=== PATIENT | female | born 1980 | race Caucasian/White ===

== ENCOUNTER 2017-08-06 01:19 | Emergency (ER) | payer OTHER ==
--- NOTE | 2017-08-06 01:23 | PDOC ---
History of Present Illness - General Chief Complaint: Pain, Acute Stated Complaint: RIGHT FLANK PAIN Time Seen by Provider: 08/06/17 01:21 - History of Present Illness Initial Comments: This 36-year-old woman without significant past medical history presents with 1 day history of progressive right flank pain. Patient had mild pain early in the day which became much more severe over the last 2 hours. She feels radiation of the pain into her groin. Pain is sharp and intermittently more severe. She has no nausea or vomiting. No fever/chills. She denies any other history of this type of pain. There has been no dysuria/urinary frequency/ urgency or hematuria. Patient is currently menstruating Past History - Past Medical History Allergies/Adverse Reactions: Allergies Allergy/AdvReac Type Severity Reaction Status Date / Time No Known Allergies Allergy Verified 08/06/17 01:22 Home Medications: Ambulatory Orders Oxycodone HCl/Acetaminophen [Percocet 5-325 mg Tablet] 1 tab PO Q6H PRN #12 tablet MDD 3 tabs 08/06/17 Anemia: No Asthma: No - Immunization History Immunization Up to Date: Yes - Suicide/Smoking/Psychosocial Hx Smoking History: Never smoked Hx Alcohol Use: No Drug/Substance Use Hx: No Substance Use Type: None *Physical Exam - Physical Exam Comments: GENERAL: Adult female, in moderate distress secondary to right flank pain HEAD: Normal with no signs of trauma. EYES: PERRLA, EOMI, sclera anicteric, conjunctiva clear. ENT: Ears normal, nares patent, oropharynx clear without exudates. Dry mucous membranes. NECK: Normal range of motion, supple without lymphadenopathy, JVD, or masses. LUNGS: Breath sounds equal, clear to auscultation bilaterally. No wheezes, and no crackles. HEART:Regular rate and rhythm, normal S1 and S2 without murmur, rub or gallop. ABDOMEN:.normal bowel sounds No guarding,tenderness or rebound.No masses No distention. EXTREMITIES: Normal range of motion, no edema. No clubbing or cyanosis. No erythema, or tenderness. NEUROLOGICAL: Cranial nerves II through XII grossly intact. Normal speech. No focal neurological deficits. MUSCULOSKELETAL: Back non-tender to palpation, moderate right CVA tenderness/ right flank tenderness SKIN: Warm, Dry, normal turgor, no rashes or lesions noted. ED Treatment Course - LABORATORY CBC & Chemistry Diagram: 10/09/17 02:00 08/06/17 02:00 Progress Note - Progress Note Progress Note: Patient given a liter of normal saline and 30 mg Toradol IV Medical Decision Making - Medical Decision Making Patient had marked decrease of her pain after IV saline hydration and 30 mg of Toradol IV. Patient continued to be asymptomatic after a liter of normal saline and 30 mg of Toradol IV. Patient will be discharged with instructions to drink plenty of water and to use [id number] ibuprofen/naproxen/acetaminophen as needed for mild-to- moderate pain. Patient will be given prescription for Percocet 5/325 to be used as needed for severe pain. She should follow-up either with her general medical doctor or with urologist (Dr. Henderson group) within the next few days. She should return to the emergency room if she has severe, unrelenting pain or develops persistent vomiting/fever. *DC/Admit/Observation/Transfer Diagnosis at time of Disposition: Renal colic on right side - Discharge Dispostion Disposition: HOME Condition at time of disposition: Stable - Prescriptions Prescriptions: Oxycodone HCl/Acetaminophen [Percocet 5-325 mg Tablet] 1 tab PO Q6H PRN #12 tablet MDD 3 tabs PRN Reason: Severe Pain - Referrals Referrals: Nelia Randle MD [Primary Care Provider] - Cj Henderson MD [Staff Physician] - - Patient Instructions Printed Discharge Instructions: Kidney Stones -- Adult Additional Instructions: Drink plenty of water Tylenol/Motrin as needed for [id number] pain Percocet 5/325 up to 3 times a day as needed for severe pain Return to ER if you have persistent severe pain or develop vomiting/fever Follow-up with Dr. Henderson (urologist) within the next 5 days
[2017-08-06 01:30] VITALS: TEMP 98.5; BMI 30.1
[2017-08-06] MEDS ORDERED: KETOROLAC TROMETHAMINE 30 MG/1 ML VIAL IVPUSH ONE (01:46)
[2017-08-06] MEDS ORDERED: SODIUM CHLORIDE 1,000 ML IV STA (01:46)
[2017-08-06 01:49] LABS: URINE APPEARANCE SLCLOUDY; URINE BILIRUBIN NEGATIVE (NEGATIVE); URINE BLOOD 3+ (NEGATIVE); URINE GLUCOSE (UA) NEGATIVE (NEGATIVE); URINE KETONE NEGATIVE (NEGATIVE); URINE NITRITE NEGATIVE (NEGATIVE); URINE UROBILINOGEN NEGATIVE mg/dL (0.2-1.0)
[2017-08-06 01:50] LABS: URINE COLOR PINK; URINE PROTEIN 1+ (NEGATIVE)
[2017-08-06] MEDS ORDERED: KETOROLAC TROMETHAMINE 60 MG/2 ML VIAL ONE (01:53)
[2017-08-06 02:35] LABS: BASOPHIL 0.6 % (0-2.0); EOSINOPHIL 1.6 % (0-4.5); MCH 27.9 pg (25.7-33.7); MCHC 33.4 g/dl (32.0-36.0); MEAN CELL VOLUME 83.6 fl (80-96); MEAN PLT VOLUME 9.9 fl (7.5-11.1); NEUTROPHILS 69.5 % (42.8-82.8); PLATELET COUNT 278 K/MM3 (134-434); WHITE BLOOD COUNT 13.2 K/mm3 (4.0-10.0)
[2017-08-06 02:47] VITALS: BP 147/90; PULSE 69
[2017-08-06 03:03] LABS: ALBUMIN 3.8 g/dl (3.4-5.0); ALK PHOS 85 U/L (45-117); ANION GAP 11 (8-16); BILIRUBIN,TOTAL 0.6 mg/dL (0.2-1.0); CALCIUM 8.8 mg/dL (8.5-10.1); CO2 25 mmol/L (21-32); CREATININE 0.8 mg/dL (0.55-1.02); GLUCOSE,RANDOM 92 mg/dL (74-106); SGOT/AST 17 U/L (15-37); SGPT/ALT 25 U/L (12-78); TOT PROT 7.7 g/dl (6.4-8.2)
[2017-08-06 11:09] LABS: URINE LEUK ESTERASE Negative (NEGATIVE)
== END 2017-08-06 04:40 | disposition home or self-care (01) ==
LOC: FER 01:19
PROC: 3E0333Z Introduction of Anti-inflammatory into Peripheral Vein, Percutaneous Approach (ICD-10-PCS; principal; 2017-08-06)
PROC: 3E0337Z Introduction of Electrolytic and Water Balance Substance into Peripheral Vein, Percutaneous Approach (ICD-10-PCS; 2017-08-06)
DX: N23 Unspecified renal colic (principal)
CPT/HCPCS: 36415; 80053; 81003; 81015; 84703; 85025; 99282-25

== ENCOUNTER 2019-04-19 00:41 | Inpatient (IN) | payer OTHER ==
[2019-04-19] MEDS ORDERED: NITROGLYCERIN SUBLINGUAL 1/150 0.4 MG TAB SL ONE (01:24)
[2019-04-19] MEDS ORDERED: VALSARTAN 40 MG TABLET (FP) PO ONE (01:24)
--- NOTE | 2019-04-19 01:24 | PDOC ---
History of Present Illness - General Chief Complaint: Blood Pressure Problem Stated Complaint: HEADACHE/HIGH BP Time Seen by Provider: 04/19/19 00:55 History Source: Patient Exam Limitations: No Limitations - History of Present Illness Initial Comments: 04/19/19 01:25 38 y/o F no significant PMHx presents with Headache. Patient has had headache on and off for the past few months. She has tried conservative tx including NSAIDs with minimal relief. Eariler on Sunday morning, She visited an ENT who found her BP to be elevated and suggested she visit the ED. Patient says her BP at [facility] ED was 200s/100. Additionally she had Labs, EKG and CXR all normal and that she was discharged on 12.5mg HCTZ. Approx 5 mins after taking the first dose at 7pm on 04/18, patient vomited and her headache began to return. She then tried advil and vomitied for a 2nd time prompting her to visit the ED. She says both episodes of vomiting were NBNB. She describes the headache as a pressure over the forehead region, currently 5/10 but 10/10 at worst, radiates to her eyes and her posterior cranium. She additionally mentions having headaches in the past while on OCPs, and sessation of OCP use helped resolve the headaches. FDLMP: 04/01/19 Denies any recent trauma, travel, sick contacts or recent medication changes. Denies any Fevers, chills, chest pain, SOB, Nausea, vomiting, Diarrhea, constipation, dysuria, visual changes, photophobia. PCP: Dr. Randle Meds: Verenice Huerta PMHx: Denies PSHx: Denies Allergies: NKDA Social: Denies tobacco, EtOH or drug use FHx: Father with HTN and DM, Mother with Thyroid Disease Past History - Past Medical History Allergies/Adverse Reactions: Allergies Allergy/AdvReac Type Severity Reaction Status Date / Time No Known Allergies Allergy Verified 04/19/19 00:50 Home Medications: Ambulatory Orders Oxycodone HCl/Acetaminophen [Percocet 5-325 mg Tablet] 1 tab PO Q6H PRN #12 tablet MDD 3 tabs 08/06/17 Valsartan [Diovan] 40 mg PO DAILY #30 tablet 04/19/19 Anemia: No Asthma: No - Immunization History Immunization Up to Date: Yes - Suicide/Smoking/Psychosocial Hx Smoking History: Never smoked Have you smoked in the past 12 months: No Information on smoking cessation initiated: No Hx Alcohol Use: No Drug/Substance Use Hx: No Substance Use Type: None Review of Systems - Review of Systems Constitutional: No: Chills, Fever HEENTM: No: Blurred Vision, Double Vision Respiratory: No: Cough, Shortness of Breath Cardiac (ROS): No: Chest Pain, Palpitations ABD/GI: Yes: Vomiting. No: Constipated, Diarrhea, Nausea : No: Dysuria, Hematuria Neurological: No: Numbness, Tingling *Physical Exam - Vital Signs Last Vital Signs Temp Pulse Resp BP Pulse Ox 98.3 F 89 20 195/136 H 96 04/19/19 00:51 04/19/19 00:51 04/19/19 00:51 04/19/19 00:51 04/19/19 00:51 - Physical Exam General Appearance: Yes: Nourished, Appropriately Dressed HEENT: positive: EOMI, EYAL. negative: Pharyngeal Erythema, Tonsillar Exudate Neck: positive: Supple Respiratory/Chest: positive: Lungs Clear, Normal Breath Sounds. negative: Accessory Muscle Use, Crackles, Rhonchi, Wheezing Cardiovascular: positive: Regular Rhythm, Regular Rate, S1, S2. negative: Edema , JVD, Murmur Gastrointestinal/Abdominal: positive: Normal Bowel Sounds, Soft. 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 negative: Sensory Deficit ED Treatment Course - LABORATORY CBC & Chemistry Diagram: 04/19/19 01:27 04/19/19 01:27 Medical Decision Making - Medical Decision Making 04/19/19 01:36 38 y/o F no significant PMHx presents with Headache in the setting of HTN. Headaches started shortly after starting Jumet FE. BP 195/136 otherwise VSS, No associated visual symptoms, No FND, No Chest pain or SOB. Will Check EKG, Cardiac profile, CBC, CMP, Mag Phos. If UPreg Negative, will order CT Head Noncon. Give SL Nitro 0.4mg, Diovan 40mg. Tylenol for headache Ongoing assessment. 04/19/19 02:50 Lab work noted above. UPreg Negative, Head CT NonCon ordered. BP improving. 04/19/19 04:[address]: No acute pathology. BP Remains elevated. Patient has vomited x2 since arrival in ED. Concern for Hypertensive Urgency. Microblog sent for Admission. 04/19/19 04:43 Will try IV Hydralizine 10mg 04/19/19 05:58 BP now 165/115 Sign out given to MIRIAM Diaz *DC/Admit/Observation/Transfer Diagnosis at time of Disposition: Uncontrolled hypertension - Discharge Dispostion Disposition: HOME Decision to Admit order: Yes - Prescriptions - Referrals - Patient Instructions - Post Discharge Activity
[2019-04-19] MEDS ORDERED: ACETAMINOPHEN 1000 MG/100 ML VIAL (NON FORMULARY) IVPB ONE (01:31)
[2019-04-19] MEDS ORDERED: ACETAMINOPHEN INJECTION 100 ML IVPB ONE (01:37)
[2019-04-19 01:56] LABS: BASO % 0.3 % (0-2.0); EOS % 0.2 % (0-4.5); HEMATOCRIT 42.4 % (32.4-45.2); HEMOGLOBIN 14.1 GM/dL (10.7-15.3); LYMPH % 13.7 % (8-40); MCH 26.2 pg (25.7-33.7); MCHC 33.2 g/dl (32.0-36.0); MEAN CELL VOLUME 78.9 fl (80-96); MEAN PLT VOLUME 9.6 fl (7.5-11.1); MONO % 4.5 % (3.8-10.2); NEUT % 81.3 % (42.8-82.8); PLATELET COUNT 322 K/MM3 (134-434); RBC 5.37 M/mm3 (3.60-5.2); RDW 15.8 % (11.6-15.6); WHITE BLOOD COUNT 15.3 K/mm3 (4.0-10.0)
[2019-04-19 02:27] LABS: ALBUMIN 3.7 g/dl (3.4-5.0); BILIRUBIN,TOTAL 0.6 mg/dL (0.2-1); BLOOD UREA NITROGEN 9.9 mg/dL (7-18); CALCIUM 9.4 mg/dL (8.5-10.1); CREATININE 0.9 mg/dL (0.55-1.3); MAGNESIUM 2.2 mg/dL (1.8-2.4); PHOSPHOROUS 3.7 mg/dL (2.5-4.9); POTASSIUM 3.8 mmol/L (3.5-5.1); TOT PROT 8.1 g/dl (6.4-8.2)
--- NOTE | 2019-04-19 02:58 | PDOC ---
Documentation entered by Alan Ramirez SCRIBE, acting as scribe for Ginny Emery MD. Ginny Emery MD: This documentation has been prepared by the James iraheta Elijah, SCRIBE, under my direction and personally reviewed by me in its entirety. I confirm that the documentation accurately reflects all work, treatment, procedures, and medical decision making performed by me. Attending Attestation - Resident Resident Name: Lena Diaz - ED Attending Attestation I have performed the following: I have examined & evaluated the patient, The case was reviewed & discussed with the resident, I agree w/resident's findings & plan - HPI HPI: 04/19/19 01:53 The patient is a 38 year old female, with no significant PMH of who presents to the emergency department with intermittent headaches over the last few months and an abnormally High Blood Pressure. The patient reports trying to take medications to relieve the headache but it only had minimal effects. The patient then went to an ENT where it was discovered that her BP was elevated ( around 200/100). The patient then received other labs but they came back normal. The patient was discharged and given 12.5mg of HCTZ which made her vomit around 5 minutes later. The patient then tried to take an advil to relieve her symptoms and she again vomited, prompting her visit to the ED. The patient describes the pain as waxing and waning, currently at 5/10 and 10/10 at its worst and radiating from her eyes to the back of her head. The patient denies chest pain, shortness of breath, and dizziness. Denies fever, chills, nausea, diarrhea and constipation. Denies dysuria, frequency, urgency and hematuria. Allergies: NKA PCP :Dr. Randle - Physicial Exam PE: 04/19/19 01:53 GENERAL: Awake, alert, and fully oriented, in no acute distress HEAD: No signs of trauma EYES: PERRLA, EOMI, sclera anicteric, conjunctiva clear ENT: Auricles normal inspection, hearing grossly normal, nares patent, oropharynx clear without exudates. Moist mucosa NECK: Normal ROM, supple, no lymphadenopathy, JVD, or masses LUNGS: Breath sounds equal, clear to auscultation bilaterally. No wheezes, and no crackles HEART: Regular rate and rhythm, normal S1 and S2, no murmurs, rubs or gallops ABDOMEN: Soft, nontender, normoactive bowel sounds. No guarding, no rebound. No masses EXTREMITIES: Normal range of motion, no edema. No clubbing or cyanosis. No cords, erythema, or tenderness NEUROLOGICAL: Cranial nerves II through XII grossly intact. Normal speech, normal gait SKIN: Warm, Dry, normal turgor, no rashes or lesions noted. - Medical Decision Making 04/19/19 04:01 Patient Name: QAMAR JOHN THIS IS A PRELIMINARY REPORT FROM [facility] DATE OF SERVICE: 2019-04-19 03:11:33 IMAGES: 150 EXAM: HEAD CT WITHOUT CONTRAST HISTORY: Headache COMPARISON: None. FINDINGS: The ventricular system is midline and nondilated. The sulcal pattern is normal for the patient's age. There is no bleed, mass, extra-axial fluid collection or mass effect. No skull fracture or skull lesion is identified. The visualized paranasal sinuses and mastoid air cells are clear. Multiple large subcutaneous calcified sebaceous cysts are noted. IMPRESSION: No acute pathology 04/19/19 06:19 Pt's blood pressure is difficult to control, as she keeps vomiting up her meds. SHe has notmal labs and CT scan. I will be treated with IV dose of meds and she will be admitted for hypertensive urgency, vomiting, Heart Score/ECG Review - ECG Intrepretation Rhythm: Regular Rhythm - Sherrill Sherrill: Normal - P and CT Delta Wave(s) Present: No WPW: No - ST and T Early Repolarization: No Non Specific ST-T Wave changes: No - ECG Impressions Normal ECG: Yes Non-specific ST Elevation: No Ischemic Changes: No Comment:: 04/19/19 04:17 LV[facility]
[2019-04-19] MEDS ORDERED: hydrALAZINE HCL 20 MG/ML VIAL IVPUSH ONE (04:42)
[2019-04-19] MEDS ORDERED: hydrALAZINE HCL 20 MG/ML VIAL ONE ×2 (05:07→11:34)
--- NOTE | 2019-04-19 06:04 | HP ---
Admitting History and Physical - Primary Care Physician PCP: Nelia Randle - Admission Chief Complaint: Headache, High Blood pressure History of Present Illness: 38 year old female with Pmhx of headaches; arrived to ED with complain of headaches and Hypertensive urgency. As per patient headaches have been on/off for a few weeks, headache constant in pressure, radiates around her eye, current pain scale 5/10. She has had headaches in the past which resolve after taking Advil, per patient past headaches have been triggered by her oral contraceptives. Patient on Sunday morning went to ENT for her allergies and at the office was noted with high BP went to [facility] form there, at the hospital per patient did EKG, CXR, and labs all which came back normal and was given HCTZ and sent home. At home around 7pm on 04/18, patient took her medication and vomited and her headache began to return. Vomited two times at home which brought her to ED. While at the ED given Divon 40 mg PO x1 without any changes in BP, however patient voimted x2 again, now with IV push hydralizine 10 mg with slight improvement BP of 165/115 History Source: Patient Limitations to Obtaining History: No Limitations - Past Medical History Cardiovascular: Yes: HTN (diet contorlled now) ...LMP: 02/25/16 Heme/Onc: Yes: Other (chronic mild leukocytosis ~12 000) - Smoking History Smoking history: Never smoked Have you smoked in the past 12 months: No - Alcohol/Substance Use Hx Alcohol Use: Yes (occasional ) History of Substance Use: reports: None - Social History Usual Living Arrangement: Yes: With Significant Other ADL: Independent History of Recent Travel: No Home Medications - Allergies Allergies/Adverse Reactions: Allergies Allergy/AdvReac Type Severity Reaction Status Date / Time No Known Allergies Allergy Verified 04/19/19 00:50 - Home Medications Home Medications: Ambulatory Orders Oxycodone HCl/Acetaminophen [Percocet 5-325 mg Tablet] 1 tab PO Q6H PRN #12 tablet MDD 3 tabs 08/06/17 Valsartan [Diovan] 40 mg PO DAILY #30 tablet 04/19/19 Family Disease History - Family Disease History Family Disease History: Diabetes: Father ( of lung ca, COPD), CA: Father, Brother ( of leukemia), Respiratory: Father, Mother (COPD) Review of Systems - Review of Systems Eyes: reports: Other (Eye pressure due to headach) Physical Examination Vital Signs: Vital Signs Temperature 98.2 F 04/19/19 04:08 Pulse Rate 86 04/19/19 04:08 Respiratory Rate 16 04/19/19 04:08 Blood Pressure 165/115 H 04/19/19 05:35 O2 Sat by Pulse Oximetry (%) 98 04/19/19 04:08 Labs: CBC, BMP 04/19/19 01:27 04/19/19 01:27 Problem List - Problems (1) Hypertensive urgency Assessment/Plan: 38 year old female present with Hypertension urgency and Nausea/ vomiting Head CT: No acute pathology. Given SL Nitro 0.4mg, Diovan 40mg x1 without any changes in BP - started on IV Hydralizine 10 mg q 6 hour - Continue with Tylenol PRN - follow up repeat cbc, cmp Code(s): I16.0 - HYPERTENSIVE URGENCY (2) Nausea & vomiting Assessment/Plan: Monitor for further vomiting - if needed will give zofran PRN Code(s): R11.2 - NAUSEA WITH VOMITING, UNSPECIFIED Assessment/Plan 38 year old female present with Hypertension urgency and Nausea/ vomiting Head CT: No acute pathology. Given SL Nitro 0.4mg, Diovan 40mg x1 without any changes in BP - started on IV Hydralizine 10 mg q 6 hour - Continue with Tylenol PRN - follow up repeat cbc, cmp - will get renal US - follow up ECHO - Cardiology follow up Visit type - Emergency Visit Emergency Visit: Yes ED Registration Date: 04/19/19 Care time: The patient presented to the Emergency Department on the above date and was hospitalized for further evaluation of their emergent condition. - New Patient This patient is new to me today: Yes Date on this admission: 04/19/19 - Critical Care Critical Care patient: No
[2019-04-19] MEDS ORDERED: hydrALAZINE HCL 20 MG/ML VIAL IVPUSH PRN (06:27)
[2019-04-19] MEDS ORDERED: ACETAMINOPHEN 325 MG TABLET (FP) ONE ×2 (07:55→08:23)
--- NOTE | 2019-04-19 08:07 | CON.CARD ---
Consult Consult Specialty:: Cardiology Referred by:: Dr. Randle Reason for Consultation:: Hypertensive Urgency - History of Present Illness Chief Complaint: Headache History of Present Illness: 38F with no sig PMH, recently started on OCPs, presents to ER with recently diagnosed HTN started on HCTZ complaining of headaches and nausea. No CP, SOB, palps, syncope or other neuro sx. BP in ER moderate to severely elevated, received oral dose of Valsartan. Presently alert, no complaints. Head CT negative for acute pathology. - History Source History Provided By: Patient - Past Medical History Cardio/Vascular: Yes: HTN (diet contorlled now) Pulmonary: No: Asthma, Bronchitis, Cancer, COPD, O2 Dependent, Pneumonia, Previously Intubated, Pulmonary Embolus, Pulmonary Fibrosis, Sleep Apnea, Other Gastrointestinal: No: Ascites, Cancer, Constipation, Crohn's Disease, Diverticulitis, Diverticulosis, Esophageal Varices, Gastritis, GERD, GI Bleed, Hemorrhoids, Hiatal Hernia, Inflamatory Bowel Disease, Irritable Bowel Disease, Pancreatitis, Peptic Ulcer Disease, Ulcerative Colitis, Other Hepatobiliary: No: Cirrhosis, Cholelithiasis, Cholecystitis, Choledocholithiasis , Hepatitis A, Hepatitis B, Hepatitis C, Other Renal/: No: Renal Failure, Renal Inusuff, BPH, Cancer, Hematuria, Hemodialysis , Neurogenic Bladder, Renal Calculi, UTI, Other Reproductive: No: Ectopic , Endometriosis, Fibroids, PID, Polycystic Ovary Syndrome, Postmenopausal, Other ...LMP: 02/25/16 Infectious Disease: No: AIDS, C-Diff, Herpes Zoster, HIV, MRSA, STD's, Tuberculosis, VREF, Other Psych: No: Addictions, Anxiety, Bipolar, Depression, Panic, Psychosis, Schizophrenia, Other Musculoskeletal: No: Bursitis, Chronic low back pain, Hemiparesis, Hemiplegia, Osteoarthritis, Paraplegia, Other Rheumatology: No: Fibromyalgia, Gout, Lupus, Rheumatoid Arthritis, Sarcoidosis, Vasculitis, Other ENT: No: Allergic Rhinitis, Sinusitis, Other Endocrine: No: Kyler's Disease, Prabhjot's Disease, Diabetes Insipidus, Diabetes Mellitus, Hyperparathyroidism, Hyperthyroidism, Hypothyroidism, Osteopenia, SIADH, Other Dermatology: No: Basal Cell, Cellulitis, Eczema, Melanoma, Psoriasis, Squamous Cell, Other - Alcohol/Substance Use Hx Alcohol Use: Yes (occasional ) History of Substance Use: reports: None - Smoking History Smoking history: Never smoked Have you smoked in the past 12 months: No - Social History ADL: Independent History of Recent Travel: No Home Medications - Allergies Allergies/Adverse Reactions: Allergies Allergy/AdvReac Type Severity Reaction Status Date / Time No Known Allergies Allergy Verified 04/19/19 00:50 - Home Medications Home Medications: Ambulatory Orders Oxycodone HCl/Acetaminophen [Percocet 5-325 mg Tablet] 1 tab PO Q6H PRN #12 tablet MDD 3 tabs 08/06/17 Valsartan [Diovan] 40 mg PO DAILY #30 tablet 04/19/19 Family Disease History - Family Disease History Family Disease History: Diabetes: Father ( of lung ca, COPD), CA: Father, Brother ( of leukemia), Respiratory: Father, Mother (COPD) Review of Systems - Review of Systems Constitutional: reports: No Symptoms Eyes: reports: No Symptoms HENT: reports: No Symptoms Neck: reports: No Symptoms Cardiovascular: reports: No Symptoms Respiratory: reports: No Symptoms Gastrointestinal: reports: No Symptoms Genitourinary: reports: No Symptoms Breasts: reports: No Symptoms Reported Musculoskeletal: reports: No Symptoms Integumentary: reports: No Symptoms Neurological: reports: Headache Endocrine: reports: No Symptoms Hematology/Lymphatic: reports: No Symptoms Psychiatric: reports: No Symptoms - Risk Factors Known Risk Factors: Yes: Hypertension Vital Signs: Vital Signs Temperature 97.4 F L 04/19/19 06:17 Pulse Rate 97 H 04/19/19 06:17 Respiratory Rate 16 04/19/19 04:08 Blood Pressure 169/107 H 04/19/19 06:21 O2 Sat by Pulse Oximetry (%) 98 04/19/19 06:17 Constitutional: Yes: No Distress, Calm Eyes: Yes: Conjunctiva Clear, EOM Intact HENT: Yes: Atraumatic, Normocephalic Neck: Yes: Supple, Trachea Midline Respiratory: Yes: CTA Bilaterally Gastrointestinal: Yes: Soft Renal/: Yes: Other (no bruits) Cardiovascular: Yes: Regular Rate and Rhythm JVD: No Carotid Bruit: No PMI: Non-Displaced Heart Sounds: Yes: S1, S2 Edema: No Peripheral Pulses WNL: Yes Neurological: Yes: Alert, Oriented - Other Data Labs, Other Data: CBC, BMP 04/19/19 01:27 04/19/19 01:27 Troponin, BNP 04/19/19 01:27 Troponin I < 0.02 Troponin, BNP 04/19/19 01:27 Troponin I < 0.02 NSR [facility] Imaging - Results Cat Scan: Report Reviewed Assessment/Plan IMP: 1. Hypertensive urgency Possibly triggered by OCPs; secondary causes to be excluded. REC: 1. Start Amlodipine 5mg daily. 2. Check TSH 3. D/C OCPs 4. Renal artery duplex. Will follow.
[2019-04-19] MEDS ORDERED: ONDANSETRON 4 MG/2 ML VIAL ONE (08:23)
[2019-04-19] MEDS ORDERED: ACETAMINOPHEN 325 MG TABLET (FP) PO PRN (08:31)
[2019-04-19] MEDS ORDERED: ONDANSETRON 4 MG/2 ML VIAL IVPUSH PRN (08:32)
[2019-04-19] MEDS ORDERED: amLODIPine BESYLATE 5 MG TABLET (FP) PO SCH (10:00)
[2019-04-19] MEDS ORDERED: amLODIPine BESYLATE 10 MG TABLET (FP) PO SCH (10:00)
--- NOTE | 2019-04-19 10:35 | EKG ---
Test Reason : Blood Pressure : / mmHG Vent. Rate : 089 BPM Atrial Rate : 089 BPM P-R Int : 134 ms QRS Dur : 098 ms QT Int : 396 ms P-R-T Axes : 027 016 015 degrees QTc Int : 481 ms NORMAL SINUS RHYTHM MINIMAL VOLTAGE CRITERIA FOR LVH, MAY BE NORMAL VARIANT PROLONGED QT ABNORMAL ECG NO PREVIOUS ECGS AVAILABLE Confirmed by JIMENEZ SHANNON MD ([id number]) on 04/19/2019 10:35:15 AM Referred By: Confirmed By:JIMENEZ SHANNON MD
[2019-04-19] MEDS ORDERED: amLODIPine BESYLATE 5 MG TABLET (FP) PO ONE (14:30)
--- NOTE | 2019-04-19 14:42 | PN ---
Progress Note (short form) - Note Progress Note: she is admitted for headache and high bp no she also vomited twice no fever or chills no distress vs 180/115 heent nad neck supple lungs clear abd soft not tender bs normal ext no edema Laboratory Results - last 24 hr 04/19/19 04/19/19 04/19/19 01:27 01:27 01:27 WBC 15.3 H RBC 5.37 H Hgb 14.1 Hct 42.4 MCV 78.9 L MCH 26.2 MCHC 33.2 RDW 15.8 H D Plt Count 322 MPV 9.6 Absolute Neuts (auto) 12.4 H Neutrophils % 81.3 Lymphocytes % 13.7 D Monocytes % 4.5 Eosinophils % 0.2 D Basophils % 0.3 Nucleated RBC % 0 D-Dimer Sodium 137 Potassium 3.8 Chloride 103 Carbon Dioxide 26 Anion Gap 8 BUN 9.9 Creatinine 0.9 Est GFR (CKD-EPI)AfAm 94.01 Est GFR (CKD-EPI)NonAf 81.11 Random Glucose 120 H Calcium 9.4 Phosphorus 3.7 Magnesium 2.2 Total Bilirubin 0.6 AST 19 ALT 23 Alkaline Phosphatase 113 Creatine Kinase 81 Troponin I < 0.02 Total Protein 8.1 Albumin 3.7 Urine HCG, Qual 04/19/19 04/19/19 01:30 02:23 WBC RBC Hgb Hct MCV MCH MCHC RDW Plt Count MPV Absolute Neuts (auto) Neutrophils % Lymphocytes % Monocytes % Eosinophils % Basophils % Nucleated RBC % D-Dimer 431 Sodium Potassium Chloride Carbon Dioxide Anion Gap BUN Creatinine Est GFR (CKD-EPI)AfAm Est GFR (CKD-EPI)NonAf Random Glucose Calcium Phosphorus Magnesium Total Bilirubin AST ALT Alkaline Phosphatase Creatine Kinase Troponin I Total Protein Albumin Urine HCG, Qual Negative Ap headache her brain ct head is normal tylenol prn Htn add amlodipine cardiac consult
[2019-04-19] MEDS ORDERED: amLODIPine BESYLATE 5 MG TABLET (FP) ONE (15:04)
[2019-04-19] MEDS ORDERED: hydrALAZINE HCL 50 MG TABLET (FP) PO ONE (23:30)
[2019-04-19] MEDS ORDERED: LABETALOL HCL 100 MG TABLET (FP) PO ONE (23:30)
[2019-04-19 23:44] VITALS: BMI 29.2
[2019-04-20 09:23] LABS: BASO % 0.5 % (0-2.0); EOS % 0.7 % (0-4.5); HEMATOCRIT 40.9 % (32.4-45.2); HEMOGLOBIN 13.6 GM/dL (10.7-15.3); LYMPH % 20.8 % (8-40); MCH 26.3 pg (25.7-33.7); MCHC 33.2 g/dl (32.0-36.0); MEAN PLT VOLUME 10.1 fl (7.5-11.1); MONO % 7.3 % (3.8-10.2); NEUT % 70.7 % (42.8-82.8); PLATELET COUNT 362 K/MM3 (134-434); RBC 5.17 M/mm3 (3.60-5.2); WHITE BLOOD COUNT 14.8 K/mm3 (4.0-10.0)
[2019-04-20 09:54] LABS: ALBUMIN 3.6 g/dl (3.4-5.0); ALK PHOS 103 U/L (45-117); ANION GAP 10 MMOL/L (8-16); BILIRUBIN,TOTAL 0.9 mg/dL (0.2-1); BLOOD UREA NITROGEN 12.5 mg/dL (7-18); CALCIUM 9.3 mg/dL (8.5-10.1); CHLORIDE 103 mmol/L (98-107); CO2 26 mmol/L (21-32); CREATININE 1.1 mg/dL (0.55-1.3); GLUCOSE,RANDOM 93 mg/dL (74-106); POTASSIUM 3.7 mmol/L (3.5-5.1); SGOT/AST 21 U/L (15-37); SGPT/ALT 30 U/L (13-61); SODIUM 138 mmol/L (136-145); TOT PROT 7.8 g/dl (6.4-8.2)
[2019-04-20] MEDS: LABETALOL HCL 100 MG TABLET (FP) PO SCH ×2 (09:56→22:02)
[2019-04-20] MEDS: hydrALAZINE HCL 50 MG TABLET (FP) PO SCH ×2 (09:56→22:02)
--- NOTE | 2019-04-20 11:42 | PN ---
Progress Note, Physician Chief Complaint: seen and examine Denies CP, SOB Head CT negative Renal sono did not eval for RUBEN History of Present Illness: BP meds were adjusted this AM by PCP: now on Labetalol and Hydralazine - Current Medication List Current Medications: Active Medications Acetaminophen (Tylenol -) 650 mg PO Q6H PRN PRN Reason: PAIN Last Admin: 04/19/19 08:35 Dose: 650 mg Hydralazine HCl (Apresoline -) 50 mg PO BID [facility] Last Admin: 04/20/19 09:56 Dose: 50 mg Labetalol HCl (Normodyne -) 100 mg PO BID [facility] Last Admin: 04/20/19 09:56 Dose: 100 mg Ondansetron HCl (Zofran Injection) 4 mg IVPUSH Q6H PRN PRN Reason: NAUSEA AND/OR VOMITING Last Admin: 04/19/19 08:35 Dose: 4 mg - Objective Vital Signs: Vital Signs Temperature 98.0 F 04/20/19 09:14 Pulse Rate 78 04/20/19 09:14 Respiratory Rate 18 04/20/19 09:14 Blood Pressure 127/80 04/20/19 09:14 O2 Sat by Pulse Oximetry (%) 99 04/19/19 16:50 Constitutional: Yes: No Distress Cardiovascular: Yes: Regular Rate and Rhythm Respiratory: Yes: CTA Bilaterally Gastrointestinal: Yes: Soft Edema: No Neurological: Yes: Alert, Oriented Labs: CBC, BMP 04/20/19 07:47 04/20/19 07:47 Laboratory Tests 04/19/19 04/19/19 04/19/19 01:27 01:27 01:27 WBC 15.3 H Hgb 14.1 Plt Count 322 D-Dimer Sodium 137 Potassium 3.8 Creatinine 0.9 Magnesium 2.2 Creatine Kinase 81 Troponin I < 0.02 Albumin 3.7 04/19/19 04/20/19 04/20/19 01:30 07:47 07:47 WBC 14.8 H Hgb 13.6 Plt Count 362 D-Dimer 431 Sodium 138 Potassium 3.7 Creatinine 1.1 Magnesium Creatine Kinase 72 Troponin I < 0.02 Albumin Assessment/Plan IMP: 1. Hypertensive urgency, now improved. Renal fx stable 2. Leukocytosis Possibly triggered by OCPs; secondary causes to be excluded. REC: 1. Continue Labetalol. May not need Hydralazine half-way. Intolerant of HCTZ. 2. Check TSH, echo planned. 3. D/C OCPs 4. Renal artery duplex as outpatient 5. Continued clinical monitoring of BP trend. Will need close outpatient f/u moving forward.
--- NOTE | 2019-04-20 17:49 | PN ---
Progress Note (short form) - Note Progress Note: pt is doing better , no ASCENCIO, vitals , Vital Signs - 24 hr 04/19/19 04/20/19 04/20/19 23:00 06:39 09:00 Temperature 98.5 F Pulse Rate 91 H 89 Respiratory 18 18 18 Rate Blood Pressure 124/73 121/68 O2 Sat by Pulse 99 Oximetry (%) 04/20/19 04/20/19 09:14 14:04 Temperature 98.0 F 98.4 F Pulse Rate 78 80 Respiratory 18 18 Rate Blood Pressure 127/80 118/79 O2 Sat by Pulse Oximetry (%) neck supple , no jvd cvs s1/s2/0 chest ctab abd benign e xt no c/c/e neuro non focal, CBC, BMP 04/20/19 07:47 04/20/19 07:47 meds, Current Medications Generic Name Dose Route Start Last Admin Trade Name Freq PRN Reason Stop Dose Admin Acetaminophen 650 mg 04/19/19 08:31 04/19/19 08:35 Tylenol - PO 650 mg Q6H PRN Administration PAIN Hydralazine HCl 50 mg 04/20/19 10:00 04/20/19 09:56 Apresoline - PO 50 mg BID OMER Administration Labetalol HCl 100 mg 04/20/19 10:00 04/20/19 09:56 Normodyne - PO 100 mg BID [facility] Administration Ondansetron HCl 4 mg 04/19/19 08:32 04/19/19 08:35 Zofran Injection IVPUSH 4 mg Q6H PRN Administration NAUSEA AND/OR VOMITING A/P IMP: 1. Hypertensive urgency, now improved. Renal fx stable 2. Leukocytosis Possibly triggered by OCPs; secondary causes to be excluded. plan, 1. Continue Labetalol. . 2. Check TSH, echo planned. 3. D/C OCPs 4. Renal artery duplex as outpatient 5. Continued clinical monitoring of BP trend. Will need close outpatient f/u moving forward. needs workup for the secondary HTN as an outpt , leukocytosis, afebrile , get ua and C&S , and repeat
[2019-04-20 22:54] LABS: EPITHELIAL CELLS 17.6 /hpf
--- NOTE | 2019-04-21 07:00 | PN ---
Progress Note (short form) - Note Progress Note: Vital Signs Period Temp Pulse Resp BP Sys/Bright Pulse Ox Last 24 Hr 98.0 F-98.5 F 71-88 18-20 118-145/79-88 99-99 S1S2 RRR lungs cta abd soft NT +BS no edema HTN -echo -stop hydralazine -start norvasc UTI -bactrim -f/up cultures chronic low leukocytosis -NTD, has regular f/up with heme
[2019-04-21 08:15] LABS: BASO % 0.7 % (0-2.0); EOS % 2.5 % (0-4.5); HEMATOCRIT 40.6 % (32.4-45.2); HEMOGLOBIN 13.5 GM/dL (10.7-15.3); LYMPH % 23.2 % (8-40); MCH 26.4 pg (25.7-33.7); MCHC 33.1 g/dl (32.0-36.0); MEAN CELL VOLUME 79.7 fl (80-96); MEAN PLT VOLUME 9.2 fl (7.5-11.1); MONO % 8.3 % (3.8-10.2); NEUT % 65.3 % (42.8-82.8); PLATELET COUNT 325 K/MM3 (134-434); RDW 16.1 % (11.6-15.6); WHITE BLOOD COUNT 11.6 K/mm3 (4.0-10.0)
[2019-04-21 08:48] LABS: ALBUMIN 3.5 g/dl (3.4-5.0); BILIRUBIN,TOTAL 0.9 mg/dL (0.2-1); BLOOD UREA NITROGEN 12.9 mg/dL (7-18); CALCIUM 9.2 mg/dL (8.5-10.1); POTASSIUM 3.5 mmol/L (3.5-5.1); TOT PROT 7.6 g/dl (6.4-8.2)
[2019-04-21] MEDS ORDERED: amLODIPine BESYLATE 10 MG TABLET (FP) PO SCH (10:00)
[2019-04-21] MEDS: LABETALOL HCL 100 MG TABLET (FP) PO SCH (10:12)
[2019-04-21 13:55] VITALS: BP 139/88; PULSE 80
--- NOTE | 2019-04-21 14:05 | ECHO ---
Name: QAMAR JOHN Exam:Adult Echocardiogram Study Date: 04/21/2019 12:13 PM Age: 38 yrs Reason For Study: hypertension urgency new onset Height: 63 in Weight: 170 lb BSA: 1.8 m2 MMode/2D Measurements & Calculations IVSd: 1.0 cm Ao root diam: 3.3 cm LVIDd: 4.1 cm LA dimension: 2.9 cm LVIDs: 2.7 cm ACS: 1.8 cm LVPWd: 0.93 cm IVSs: 1.2 cm LVPWs: 1.1 cm EDV(Teich): 74.6 ml ESV(Teich): 26.4 ml Doppler Measurements & Calculations MV E max ronny: 92.3 cm/sec Ao V2 max: 166.8 cm/sec MV A max ronny: 62.7 cm/sec Ao max P.1 mmHg MV E/A: 1.5 Ao V2 mean: 117.8 cm/sec Ao mean P.4 mmHg Ao V2 VTI: 34.0 cm MR max ronny: 550.0 cm/sec Med Peak E' Ronny: 6.3 cm/sec MR max P.0 mmHg Med E/e': 14.8 Lat Peak E' Ronny: 9.2 cm/sec Lat E/e': 10.0 Procedure A complete two-dimensional transthoracic echocardiogram was performed (2D, M-mode, Doppler and color flow Doppler). Left Ventricle The left ventricle is normal in size. Left ventricular systolic function is normal. Ejection Fraction = 60- 65%. No regional wall motion abnormalities noted. Right Ventricle The right ventricle is normal size. The right ventricular systolic function is normal. Atria The left atrial size is normal. Right atrial size is normal. Mitral Valve There is mild mitral annular calcification. There is mild mitral regurgitation. Tricuspid Valve The tricuspid valve is normal in structure and function. There is trace tricuspid regurgitation. Aortic Valve The aortic valve is normal in structure and function. Mild aortic regurgitation. Pulmonic Valve The pulmonic valve is not well visualized. Great Vessels The aortic root is normal size. Pericardium/Pleura There is no pericardial effusion. Interpretation Summary The left ventricle is normal in size. Left ventricular systolic function is normal. No regional wall motion abnormalities noted. Ejection Fraction = 60-65%. The right ventricular systolic function is normal. The left atrial size is normal. Right atrial size is normal. There is mild mitral annular calcification. There is mild mitral regurgitation. There is trace tricuspid regurgitation. Mild aortic regurgitation. There is no pericardial effusion. Previous study is not available for comparison Isidoro Nieves MD 04/21/2019 02:05 PM
[2019-04-21 14:34] VITALS: TEMP 98.3
--- NOTE | 2019-04-21 15:47 | PN ---
Progress Note (short form) - Note Progress Note: s: no chest pain, palps, dizziness, dyspnea. feels better. Current Medications Acetaminophen (Tylenol -) 650 mg PO Q6H PRN PRN Reason: PAIN Last Admin: 04/19/19 08:35 Dose: 650 mg Amlodipine Besylate (Norvasc -) 10 mg PO DAILY [facility] Last Admin: 04/21/19 10:12 Dose: 10 mg Labetalol HCl (Normodyne -) 100 mg PO BID [facility] Last Admin: 04/21/19 10:12 Dose: 100 mg - Objective Vital Signs: Vital Signs Temperature 98.0 F 04/20/19 09:14 Pulse Rate 78 04/20/19 09:14 Respiratory Rate 18 04/20/19 09:14 Blood Pressure 127/80 04/20/19 09:14 O2 Sat by Pulse Oximetry (%) 99 04/19/19 16:50 Constitutional: Yes: No Distress Cardiovascular: Yes: Regular Rate and Rhythm, nl s1 s 2 no JVD Respiratory: Yes: CTA Bilaterally Gastrointestinal: Yes: Soft Edema: No Neurological: Yes: Alert, Oriented no jaundice, diaphoresis not agitated Assessment/Plan IMP: 1. Hypertensive urgency, now improved. Renal fx stable 2. Leukocytosis Possibly triggered by OCPs; secondary causes to be excluded. REC: 1. Continue Labetalol, amlodipine 2. Check TSH. Echo nl LV function, unremarkable. 3. OCP dc'ed 4. Renal artery duplex as outpatient - study here did not evaluate for RUBEN 5. BP improved, will need close outpatient f/u moving forward.
--- NOTE | 2019-04-22 10:35 | DS ---
Physical Examination Vital Signs: Vital Signs Temperature 98.3 F 04/21/19 10:00 Pulse Rate 80 04/21/19 13:54 Respiratory Rate 20 04/21/19 13:54 Blood Pressure 139/88 04/21/19 13:54 O2 Sat by Pulse Oximetry (%) 99 04/21/19 09:00 Labs: CBC, BMP 04/21/19 07:56 04/21/19 07:56 Discharge Summary Reason For Visit: UNCONTROLLED HYPERTENSION - Instructions Diet, Activity, Other Instructions: f/up with tomorrow Disposition: HOME - Home Medications Comprehensive Discharge Medication List: Ambulatory Orders Amlodipine Besylate [Norvasc -] 10 mg PO DAILY #30 tablet 04/21/19 Labetalol HCl [Normodyne -] 100 mg PO BID #60 tablet 04/21/19 Sulfamethoxazole/Trimethoprim [Bactrim Ds -] 1 tab PO BID #6 tablet 04/21/19
== END 2019-04-21 16:28 | disposition home or self-care (01) | DRG 305 ==
LOC: JER 00:41 → JERBED 04:17 → UNDOADMOB 04:17 → OBSVTOIN 06:59 → INTOOBSV 06:59 → JERBED 13:35 → OBSVTOIN 13:35 → J5S 23:17
PROVIDERS: ADMIT Internal Medicine; ATTEND Internal Medicine
DX: I16.0 Hypertensive urgency (principal); N39.0 Urinary tract infection, site not specified; R51 Headache; R11.2 Nausea with vomiting, unspecified; D72.829 Elevated white blood cell count, unspecified
CPT/HCPCS: 36415; 70450-TC; 76775-TC; 80053; 81003; 81015; 82550; 82962; 83735; 84100; 84484; 84703; 85025; 85379; 87086; 93005; 93010; 93306-TC; 99284-25; J0131